=== PATIENT | female | born 1970 | race Caucasian/White ===

== ENCOUNTER 2019-05-17 23:35 | Emergency (ER) | payer OTHER ==
[~2019-05-17] VITALS: Ht 162.6 cm; Wt 76.7 kg
[2019-05-18] MEDS ORDERED: methylPREDNISolone SOD SUCC 125 MG/2ML VIAL IV ONE
[2019-05-18] MEDS ORDERED: KETOROLAC TROMETHAMINE INJ 30 MG/ML VIAL IV ONE
[2019-05-18] MEDS ORDERED: ONDANSETRON HCL/PF 4 MG/2 ML VIAL IV ONE
--- NOTE | 2019-05-18 00:30 | NUR ---
BIBRA. C/O SEVERE BACK PAIN MID TO LOWER BACK SHARP SHOOTING PAIN SINCE 6PM GIVEN 100MCG FENTANYL IV AND ZOFRAN 8MG UNABLE TO MOVE W/O PAIN, TO ER BED 2 ORDERS RECEIVED AND CARRIED OUT, VSS, KEPT COMFORTABLE.
[2019-05-18] MEDS ORDERED: KETOROLAC TROMETHAMINE INJ 30 MG/ML VIAL ONE (00:31)
[2019-05-18] MEDS ORDERED: methylPREDNISolone SOD SUCC 125 MG/2ML VIAL ONE (00:31)
[2019-05-18] MEDS ORDERED: ONDANSETRON HCL/PF 4 MG/2 ML VIAL ONE (00:32)
[2019-05-18] MEDS ORDERED: HYDROMORPHONE 1 MG/1 ML DISP.SYRIN ONE (01:25)
[2019-05-18] MEDS ORDERED: HYDROMORPHONE INJ 0.5 MG/0.5 ML SYRINGE IV ONE (01:30)
--- NOTE | 2019-05-18 02:21 | NUR ---
CONTACTED [facility] FOR POSSIBLE TRANSFER
--- NOTE | 2019-05-18 03:25 | NUR ---
TRANSFER INFO: PT WILL BE TRANSFERRED TO [facility] ER ACCEPTING MD: DR. MUNROE NUMBER FOR REPORT: [phone]
--- NOTE | 2019-05-18 03:32 | NUR ---
CALLED IN REPORT TO ZAHEER GONZALEZ AT [facility]
[2019-05-18 03:51] VITALS: BP 108/71
== END 2019-05-18 03:51 | disposition short-term general hospital (02) ==
LOC: ER 23:39
DX: M51.26 Other intervertebral disc displacement, lumbar region (principal)
CPT/HCPCS: 72131; 96374; 96375; 99285; J1170; J1885; J2405; J2930